=== PATIENT | male | born 1990 | race African-American/Black ===

== ENCOUNTER 2025-05-28 16:41 | Emergency (ER) | payer OTHER ==
[~2025-05-28] VITALS: Ht 182.9 cm; Wt 72.7 kg
[2025-05-28 16:43] VITALS: BP 124/76; PULSE 108; RESP 18; TEMP 98.6; O2SAT 100
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
== END 2025-05-28 17:28 | disposition left against medical advice (07) ==
LOC: EDBD 16:41 → ER 16:41
DX: R09.89 Other specified symptoms and signs involving the circulatory and respiratory systems (principal); V89.2XXA Person injured in unspecified motor-vehicle accident, traffic, initial encounter; X58.XXXA Exposure to other specified factors, initial encounter; Y93.I9 Activity, other involving external motion; Y92.488 Other paved roadways as the place of occurrence of the external cause; Y99.8 Other external cause status